=== PATIENT | female | born 1985 | race Caucasian/White ===

== ENCOUNTER 2017-10-11 18:29 | Inpatient (IN) | payer OTHER, BC ==
[~2017-10-11] VITALS: Ht 175.3 cm; Wt 98.2 kg
[2017-10-11] MEDS ORDERED: OXYTOCIN 30U/ 0.9% NaCL 500ML 500 ML IV ONE (19:09)
[2017-10-11] MEDS ORDERED: D5%-LACTATED RINGERS 1,000 ML IV SCH (19:09)
[2017-10-11] MEDS: LACTATED RINGERS 1,000 ML IV SCH ×2 (19:20→20:02)
[2017-10-11] MEDS ORDERED: NEWBORN KIT ONE ×2 (19:25→20:29)
[2017-10-11] MEDS ORDERED: LIDOCAINE 1%, 20ML ONE ×2 (19:25→20:50)
[2017-10-11] MEDS ORDERED: MISOPROSTOL 200 MCG TABLET ONE (19:26)
[2017-10-11] MEDS ORDERED: FENTANYL PF 100 MCG/2ML ONE (19:26)
[2017-10-11] MEDS ORDERED: OXYTOCIN 30U/ 0.9% NaCL 500ML 500 ML ONE (19:26)
[2017-10-11] MEDS ORDERED: TERBUTALINE 1 MG/ML, 1ML SQ PRN (19:30)
[2017-10-11] MEDS: FENTANYL PF 100 MCG/2ML IVPush PRN (19:30)
[2017-10-11] MEDS ORDERED: PLEASE ENTER ALLERGIES MC SCH ×4 (19:30→21:00)
[2017-10-11] MEDS ORDERED: PLEASE ENTER HEIGHT AND WEIGHT MC SCH (19:30)
[2017-10-11] MEDS ORDERED: FENTANYL PF 100 MCG/2ML IV PRN (19:30)
[2017-10-11] MEDS ORDERED: ONDANSETRON 2MG/ML, 2ML IVPush PRN (19:30)
[2017-10-11] MEDS ORDERED: ALUMINUM/MAG/SIMETHICONE 30 ML UDC PO PRN (19:30)
[2017-10-11] MEDS ORDERED: TERBUTALINE 1 MG/ML, 1ML IVPush PRN ×2 (19:30)
[2017-10-11 19:46] LABS: HEMATOCRIT 36.6 % (34.6-47.8); HEMOGLOBIN 12.2 g/dL (11.7-16.4); WHITE BLOOD COUNT 11.3 x10^3/uL (3.4-10)
[2017-10-11 20:04] VITALS: BP 124/76
[2017-10-11] MEDS ORDERED: TERBUTALINE 1 MG/ML, 1ML ONE (20:25)
[2017-10-11] MEDS ORDERED: FENTANYL/BUPIV./NS/PF 0 ML EPIDCONT ONE (20:41)
[2017-10-11] MEDS ORDERED: OXYTOCIN 30U/ 0.9% NaCL 500ML 500 ML IV SCH (21:16)
[2017-10-11] MEDS ORDERED: IBUPROFEN 600 MG TABLET ONE (21:23)
[2017-10-11] MEDS ORDERED: OXYcodone/APAP 5/325MG TABLET ONE ×2 (21:24→21:25)
[2017-10-11] MEDS: IBUPROFEN 600 MG TABLET PO PRN (21:28)
[2017-10-11] MEDS ORDERED: ACETAMINOPHEN 325 MG TABLET PO PRN ×2 (21:30)
[2017-10-11] MEDS ORDERED: HYDROcodone/APAP 5/325 TABLET PO PRN (21:30)
[2017-10-11] MEDS ORDERED: MISOPROSTOL 200 MCG TABLET PR PRN (21:30)
[2017-10-11] MEDS ORDERED: HYDROcodone/APAP 5/325 TABLET ONE (21:41)
[2017-10-11] MEDS: HYDROcodone/APAP 5/325 TABLET PO PRN ×2 (21:42→23:11)
[2017-10-11 23:20] VITALS: BP 115/73
[2017-10-12] MEDS: FENTANYL PF 100 MCG/2ML IVPush PRN (01:05)
[2017-10-12 03:05] VITALS: BP 111/69
[2017-10-12] MEDS: IBUPROFEN 600 MG TABLET PO PRN ×3 (03:11→15:03)
[2017-10-12 03:14] LABS: DAU SCREEN DISCLAIMER
[2017-10-12 05:46] LABS: HEMATOCRIT 32.6 % (34.6-47.8); HEMOGLOBIN 11.1 g/dL (11.7-16.4)
[2017-10-12] MEDS: HYDROcodone/APAP 5/325 TABLET PO PRN ×4 (06:08→18:39)
[2017-10-12 08:05] VITALS: BP 123/78
[2017-10-12] MEDS ORDERED: PRENATAL VIT/IRON/FA 1 EACH TABLET PO SCH (09:00)
[2017-10-12] MEDS ORDERED: DOCUSATE 100 MG CAPSULE PO SCH (09:00)
[2017-10-12] MEDS ORDERED: DOCU-131 PO (15:31)
[2017-10-12] MEDS ORDERED: HYDR-3240 PO (15:31)
[2017-10-12] MEDS ORDERED: IBUP-1222 PO (15:31)
== END 2017-10-12 19:00 | disposition home or self-care (01) | DRG 775 ==
LOC: LDOP 18:29 → LDIP 19:09 → 2NW 22:55
PROVIDERS: ADMIT Obstetrics & Gynecology; ATTEND Obstetrics & Gynecology
PROC: 10E0XZZ Delivery of Products of Conception, External Approach (ICD-10-PCS; principal; 2017-10-11)
PROC: 0DQR0ZZ Repair Anal Sphincter, Open Approach (ICD-10-PCS; 2017-10-11)
DX: O69.81X0 Labor and delivery complicated by cord around neck, without compression, not applicable or unspecified (principal); O70.20 Third degree perineal laceration during delivery, unspecified; O76 Abnormality in fetal heart rate and rhythm complicating labor and delivery; Z37.0 Single live birth
CPT/HCPCS: 36415; 80307; 85025; 86850; 86900; J3010; G0479; J2590; J7120